=== PATIENT | male | born 1975 ===

== ENCOUNTER 2020-09-02 22:15 | Emergency (ER) | payer SELFPAY ==
[2020-09-02 22:27] VITALS: BP 116/73; PULSE 105; RESP 19; TEMP 37; O2SAT 96; BMI 25.7
[2020-09-03 01:19] VITALS: PULSE 73; RESP 20; O2SAT 95
--- NOTE | 2020-09-03 04:10 | ED_ITS ---
HPI - URI/Sore Throat General Chief Complaint: Upper Respiratory Symptoms Stated Complaint: son states covid symptoms Time Seen by Provider: 09/03/20 03:59 Source: patient Mode of arrival: Ambulatory Limitations: no limitations History of Present Illness HPI Narrative: Patient is a 44-year-old male who presents with known COVID positive. He states that he started having symptoms about 5 days ago his son also tested positive but now his son feels better. He has increased weakness and fever. He also continues to have a worsening cough. His oxygen level is 97% on room air. He denies loss of taste or smell no chest pain or sore throat. MD Complaint: fever and cough Duration: constant Review of Systems Review of Systems ROS Unobtainable: All systems reviewed & are unremarkable except as noted in HPI and below Constitutional Constitutional: Reports body ache(s), Reports fever(s), Denies headache(s) and Reports malaise ENT Ears, Nose, Mouth, and Throat: Denies dizziness and Denies headache(s) Cardiovascular Cardiovascular: Denies chest pain, Denies irregular heart rhythm, Denies lightheadedness, Denies palpitations, Denies dyspnea and Denies orthopnea Respiratory Respiratory: Reports as per HPI, Denies chest congestion, Reports cough and Denies dyspnea Gastrointestinal Gastrointestinal: Denies abdominal pain, Denies change in bowel habits, Denies diarrhea, Denies nausea and Denies vomiting Musculoskeletal Musculoskeletal: Reports myalgias and Denies deformity Integumentary/Breasts Skin/Breast: Denies pruritus, Denies erythema, Denies rash and Denies wounds Neurologic Neurologic: Denies abnormal movements, Denies dizziness and Denies headache(s) Endocrine Endocrine: Denies palpitations Patient History Medical History Patient denies medical problems Social History Smoking Status: Never smoker Smoking Status: Never smoker alcohol intake frequency: a few times a week Substance Use Type: does not use Exam Initial Vital Signs Initial Vital Signs: Vital Signs Temperature 98.6 F 09/02/20 22:27 Pulse Rate 105 H 09/02/20 22:27 Respiratory Rate 19 09/02/20 22:27 Blood Pressure 116/73 09/02/20 22:27 Pulse Oximetry 96 09/02/20 22:27 GENERAL: Alert weak appearing 44-year-old male and in no acute distress. HEENT: Head atraumatic,EOMI, pupils reactive, face symmetric, moist mucous membranes CARDIOVASCULAR: Regular rate and rhythm without murmurs, rubs or gallops. RESPIRATORY: Breath sounds equal bilaterally, no wheezes rales or rhonchi. ABDOMEN: Soft, nontender. Normoactive bowel sounds all 4 quadrants. No guarding or rebound. EXTREMITIES: Normal range of motion, no clubbing or edema. Neurovascularly intact NEUROLOGICAL: Alert and oriented x4.Normal gait and speech. SKIN: Warm, dry, no laceration, no petechiae, no rashes or lesions. Course Vital Signs Vital signs: Vital Signs - 8 hr 09/02/20 22:27 09/03/20 01:19 Temperature 98.6 F Pulse Rate 105 H 73 Respiratory Rate 19 20 Blood Pressure 116/73 Pulse Oximetry 96 95 MDM - URI/Sore Throat MDM Narrative Medical decision making narrative: At this time patient does not meet inpatient criteria for COVID 19. I have discussed with both son and patient to buy home pulse oximeter. At this time they understand that he may get worse before he gets better. Discharge Plan Departure Patient Disposition: Home Clinical Impression: COVID-19 Instructions: DI for COVID-19 (Suspected or Confirmed ) Activity Restrictions/Additional Instructions: *You have been diagnosed with COVID-19 *What to do: Please buy a home pulse oximeter is to check your oxygen. If your oxygen is below 90% return to the emergency department. Increase fluid intake, rest. You may get worse before you get better. *Continue to take medications as directed Tylenol 650 mg every 4-6 hours if needed for [id number] pain or fever *Follow up with your primary care provider in 2-3 days *Return to ER if you should have increasing shortness of breath, oxygen less than 90%, decreased fluid intake or any new, worsening or concerning symptoms CDC Guidelines for home isolation: - Stay away from others - Limit contact with pets and animals: If you must care for a pet, wash your hands before and after interacting with them - Wear a mask if you are sick - Cover your mouth and nose with a tissue when you cough or sneeze. Dispose of tissues in a lined trash can and wash your hands immediately with soap and water for at least 20 seconds. If soap and water are not available, clean hands with alcohol-based hand picker packer that contains at least 60% alcohol. - Clean your hands often with soap and water for at least 20 seconds - Avoid touching your eyes, nose and mouth with unwashed hands - Do not share dishes, drinking glasses, cups, eating utensils, towels, or bedding with other people in your home. After using these items, wash them thoroughly with soap and water or put in the office assistant receptionist. - Clean high-touch surfaces in your isolation area (?sick room? and bathroom) every day; let a caregiver clean and disinfect high-touch surfaces in other areas of the home. Clean the area or item with soap and water or another detergent if it is dirty. Then, use a household disinfectant. Seek medical attention, but call first: - Seek medical care right away if your illness is worsening (for example, if you have difficulty breathing). - Call your doctor before going in: Before going to the doctor?s office or emergency room, call ahead and tell them your symptoms. They will tell you what to do. - If possible, put on a facemask before you enter the building. If you can?t put on a facemask, try to keep a safe distance from other people (at least 6 feet away). This will help protect the people in the office or waiting room. - Follow care instructions from your healthcare provider and local health department: Your local health authorities will give instructions on checking your symptoms and reporting information. Emergency warning signs for COVID-19: - Difficulty breathing or shortness of breath - Persistent pain or pressure in the chest - New confusion or inability to arouse - Bluish lips or face Referrals: Located Within [facility] Resources [Outside]
[2020-09-03 04:43] VITALS: BP 111/68; PULSE 68; RESP 17; O2SAT 97
== END 2020-09-03 04:45 | disposition home or self-care (01) ==
PROVIDERS: Emergency Provider Emergency Medicine
DX: U07.1 COVID-19 (principal)
CPT/HCPCS: 99281